=== PATIENT | male | born 2000 | race Two or more races ===

== ENCOUNTER 2022-04-27 11:48 | Emergency (ER) | payer OTHER ==
[2022-04-27 12:06] VITALS: BP 113/72; PULSE 81; RESP 18; TEMP 98.4; BMI 20.3
[2022-04-27 15:01] LABS: EPI CELLS 2 /uL (0-25.1); HYALINE CASTS 8 /uL (0-3.1); PH,URINE 6.5 (5.0-8.0); URINE APPEARANCE CLEAR; URINE BACTERIA 45 /uL (0-1359); URINE BILIRUBIN NEGATIVE (NEGATIVE); URINE COLOR YELLOW; URINE GLUCOSE (UA) NEGATIVE (NEGATIVE); URINE KETONE TRACE (NEGATIVE); URINE LEUK ESTERASE 2+ (NEGATIVE); URINE NITRITE NEGATIVE (NEGATIVE); URINE PROTEIN NEGATIVE (NEGATIVE); URINE RBC 18 /uL (0-23.9); URINE WBC 674 /uL (0-25.8)
[2022-04-27] MEDS ORDERED: cefTRIAXone SODIUM 1 GM VIAL ONE (15:37)
== END 2022-04-27 16:45 | disposition home or self-care (01) ==
LOC: JER 11:48
DX: N45.1 Epididymitis (principal)
CPT/HCPCS: 36415; 76870-TC; 81003; 87086; 87491; 87591; 99284-25

== ENCOUNTER 2022-08-19 13:42 | Emergency (ER) | payer OTHER ==
[2022-08-19 13:47] VITALS: BP 112/50; PULSE 50; RESP 18; TEMP 98.2; BMI 23.5
[2022-08-19] MEDS ORDERED: FLUORESCEIN NA 1 EA STRIP OD ONE (14:35)
[2022-08-19] MEDS ORDERED: FLUORESCEIN NA 1 EA STRIP ONE (14:37)
== END 2022-08-19 16:09 | disposition home or self-care (01) ==
LOC: JERFT 13:42 → JER 13:42 → JERFT 16:09
DX: S05.01XA Injury of conjunctiva and corneal abrasion without foreign body, right eye, initial encounter (principal); W45.8XXA Other foreign body or object entering through skin, initial encounter
CPT/HCPCS: 99283-25